=== PATIENT | male | born 1980 | race Caucasian/White ===

== ENCOUNTER 2019-01-11 18:45 | Inpatient (IN) | payer MEDICAID, OTHER ==
[~2019-01-11] VITALS: Ht 188 cm; Wt 82.2 kg
[2019-01-11] MEDS ORDERED: AMIODARONE HCL 150 MG in D5W 5% 100 ML IV ONE (18:50)
[2019-01-11] MEDS ORDERED: METOPROLOL TARTRATE 1MG/1ML-5ML VIAL IV ONE ×2 (18:50→18:53)
[2019-01-11] MEDS ORDERED: AMIODARONE HCL (50 MG/ ML) 3 ML VIAL IV ONE (18:53)
[2019-01-11 19:33] LABS: Hemoglobin 14.2 g/dL (13.5-17.5); Mean Corpuscular Hemoglobin 30.1 pg (28.0-32.0); Mean Corpuscular Hgb Conc. 34.7 g/dL (32.0-36.0); Mean Corpuscular Volume 86.8 fL (80.0-100.0); Platelet Count (auto) 172 10^3/uL (140-450); Red Blood Cells 4.73 10^6/uL (4.5-5.90); Red Cell Distribution Width 12.2 % (11.8-14.3); White Blood Cell 4.8 10^3/uL (4.4-10.8)
[2019-01-11 19:38] LABS: Basophils % (manual) 0 (0.0-2.0); Blast Cells 0; Metamyelocytes % 0; Myelocytes % 0; Promyelocytes % 0; Reactive Lymphocytes 0
[2019-01-11 19:49] LABS: INR 2.36 (0.9-1.15); Partial Thromboplastin Time 37.9 sec (23.64-32.05)
[2019-01-11 19:55] LABS: Albumin 3.3 g/dL (3.4-5.0); Calcium 8.4 mg/dL (8.5-10.1); Potassium 4.2 mmol/L (3.5-5.1)
[2019-01-11 20:00] LABS: BUN/Creatinine Ratio 32.2; Bilirubin, Total 0.7 mg/dL (0.2-1.0); Total Protein 6.7 g/dL (6.4-8.2)
[2019-01-11] MEDS ORDERED: WARF3TAB22 PO (20:26)
[2019-01-11] MEDS ORDERED: FURO40TA4 PO (20:26)
[2019-01-11] MEDS ORDERED: WARF1TAB36 PO (20:26)
[2019-01-11] MEDS ORDERED: LOSA-69 PO (20:26)
[2019-01-11] MEDS ORDERED: METO-169 PO (20:26)
[2019-01-11] MEDS ORDERED: AMIODARONE HCL 900 MG in DEXTROSE 500 ML IV SCH ×2 (21:04→23:19)
[2019-01-11 21:21] LABS: Band Neutrophils % (manual) 4; Eosinophils % (manual) 2 (0-7); Lymphocytes % (manual) 39 (10.0-50.0); Monocytes % (manual) 22 (0-12)
[2019-01-11] MEDS ORDERED: ONDANSETRON HCL 4 MG/2 ML VIAL IV PRN (23:15)
[2019-01-11] MEDS ORDERED: HYDROcodone-ACET 5/325MG TAB PO PRN (23:15)
[2019-01-11] MEDS ORDERED: ACETAMINOPHEN 500 MG TAB PO PRN (23:15)
[2019-01-11] MEDS ORDERED: NITROGLYCERIN 0.4 MG SL TAB SL PRN (23:15)
[2019-01-11] MEDS ORDERED: MORPHINE SULF INJ 2 MG/ML SYRINGE 1ML IV PRN (23:15)
[2019-01-12] MEDS ORDERED: AMIODARONE HCL 900 MG in DEXTROSE 500 ML IV SCH (03:04)
[2019-01-12] MEDS: AMIODARONE HCL 900 MG in DEXTROSE 500 ML IV SCH (05:19)
[2019-01-12 06:26] LABS: BUN/Creatinine Ratio 33.8; Calcium 8.9 mg/dL (8.5-10.1); Potassium 4.1 mmol/L (3.5-5.1)
[2019-01-12 09:14] LABS: Urine Bacteria NONE SEEN /hpf (None Seen); Urine Blood Negative /uL (Negative); Urine Specific Gravity 1.031 (1.001-1.035); Urine WBC <1 /hpf (0 - 3)
[2019-01-12 09:24] LABS: INR 2.14 (0.9-1.15)
[2019-01-12] MEDS ORDERED: METOPROLOL SUCCINATE XL 50 MG TAB PO ONE ×6 (09:30→18:30)
[2019-01-12] MEDS: MAGNESIUM SULFATE 1GM/100ML 100 ML IV SCH ×2 (09:44→10:55)
[2019-01-12] MEDS: LOSARTAN POTASSIUM 50 MG TAB PO SCH (10:00)
[2019-01-12] MEDS ORDERED: METOPROLOL SUCCINATE XL 50 MG TAB PO SCH (10:00)
[2019-01-12] MEDS ORDERED: DIGOXIN (250MCG/ML) 2 ML AMPULE IV ONE ×2 (14:45→15:00)
[2019-01-12 16:37] LABS: Free T4 (Free Thyroxine) 6.98 ng/dL (0.89-1.76)
[2019-01-12 16:38] LABS: Free T3 14.15 pg/mL (2.3-4.2)
[2019-01-12] MEDS ORDERED: WARFARIN SODIUM 1 MG TAB PO ONE (17:00)
[2019-01-12] MEDS: SODIUM CHLORIDE 0.9% 1,000 ML IV SCH (18:01)
[2019-01-12] MEDS: METOPROLOL SUCCINATE XL 50 MG TAB PO SCH (22:00)
[2019-01-13] MEDS: AMIODARONE HCL 900 MG in DEXTROSE 500 ML IV SCH (05:19)
[2019-01-13 07:12] LABS: Basophils # (auto) 0 uL; Basophils % (auto) 0.3 % (0.0-2.0); Eosinophils # (auto) 0 uL; Eosinophils % (auto) 0.5 % (0.0-7.0); Hematocrit 41.1 % (41.0-53.0); Hemoglobin 14.2 g/dL (13.5-17.5); Lymphocytes # (auto) 1.5 uL; Lymphocytes % (auto) 20.3 % (10.0-50.0); Mean Corpuscular Hgb Conc. 34.4 g/dL (32.0-36.0); Mean Corpuscular Volume 87.1 fL (80.0-100.0); Monocytes # (auto) 1.3 uL; Monocytes % (auto) 17.5 % (0.0-12.0); Neutrophils # (auto) 4.6 uL; Neutrophils % (auto) 61.4 % (37.0-80.0); Nucleated Red Blood Cells % 0.1 %; Platelet Count (auto) 154 10^3/uL (140-450); Red Blood Cells 4.72 10^6/uL (4.5-5.90); Red Cell Distribution Width 12.2 % (11.8-14.3); White Blood Cell 7.5 10^3/uL (4.4-10.8)
[2019-01-13 07:24] LABS: INR 3.45 (0.9-1.15)
[2019-01-13 07:35] LABS: BUN/Creatinine Ratio 26.6; Calcium 8.7 mg/dL (8.5-10.1); Potassium 4.4 mmol/L (3.5-5.1)
[2019-01-13] MEDS: LOSARTAN POTASSIUM 50 MG TAB PO SCH (09:45)
[2019-01-13] MEDS: METHIMAZOLE 5 MG TAB PO SCH (09:45)
[2019-01-13] MEDS: METOPROLOL SUCCINATE XL 50 MG TAB PO SCH (09:45)
[2019-01-13] MEDS ORDERED: METOPROLOL SUCCINATE XL 50 MG TAB PO SCH ×2 (10:00→22:00)
[2019-01-13] MEDS: SODIUM CHLORIDE 0.9% 1,000 ML IV SCH (13:47)
[2019-01-13] MEDS ORDERED: DIGOXIN 0.125 MG TAB PO ONE (16:30)
[2019-01-13] MEDS ORDERED: WARF3TAB22 PO (18:49)
[2019-01-13] MEDS ORDERED: WARF4TAB33 PO (18:49)
[2019-01-13] MEDS ORDERED: METOPROLOL SUCCINATE XL 50 MG TAB PO ONE ×2 (20:00→20:11)
[2019-01-13 21:00] VITALS: BP 119/62
[2019-01-14 05:00] VITALS: BP 120/62
[2019-01-14 06:34] LABS: Basophils # (auto) 0 uL; Basophils % (auto) 0.3 % (0.0-2.0); Eosinophils # (auto) 0.1 uL; Eosinophils % (auto) 0.7 % (0.0-7.0); Hematocrit 39.8 % (41.0-53.0); Hemoglobin 14.1 g/dL (13.5-17.5); Lymphocytes # (auto) 1.5 uL; Lymphocytes % (auto) 18.3 % (10.0-50.0); Mean Corpuscular Hemoglobin 30.4 pg (28.0-32.0); Mean Corpuscular Hgb Conc. 35.4 g/dL (32.0-36.0); Mean Corpuscular Volume 85.9 fL (80.0-100.0); Monocytes # (auto) 1.3 uL; Monocytes % (auto) 16.2 % (0.0-12.0); Neutrophils # (auto) 5.3 uL; Neutrophils % (auto) 64.5 % (37.0-80.0); Nucleated Red Blood Cells % 0.1 %; Platelet Count (auto) 164 10^3/uL (140-450); Red Blood Cells 4.64 10^6/uL (4.5-5.90); White Blood Cell 8.2 10^3/uL (4.4-10.8)
[2019-01-14 06:51] LABS: INR 2.33 (0.9-1.15); Partial Thromboplastin Time 37.9 sec (23.64-32.05)
[2019-01-14 07:08] LABS: BUN/Creatinine Ratio 25.4; Calcium 8.6 mg/dL (8.5-10.1); Potassium 4.1 mmol/L (3.5-5.1)
[2019-01-14 07:34] VITALS: BP 131/75
[2019-01-14 09:36] VITALS: BP 131/75
[2019-01-14] MEDS: METOPROLOL SUCCINATE XL 50 MG TAB PO SCH ×2 (10:35→21:14)
[2019-01-14] MEDS: LOSARTAN POTASSIUM 50 MG TAB PO SCH (10:36)
[2019-01-14] MEDS: DIGOXIN 0.125 MG TAB PO SCH (10:36)
[2019-01-14] MEDS: METHIMAZOLE 5 MG TAB PO SCH (10:36)
[2019-01-14 12:23] VITALS: BP 119/64
[2019-01-14 17:00] VITALS: BP 104/73
[2019-01-14] MEDS ORDERED: WARFARIN SODIUM 1 MG TAB PO ONE (17:00)
[2019-01-14 22:00] VITALS: BP 122/75
[2019-01-15 05:00] VITALS: BP 107/59
[2019-01-15 06:39] LABS: Hematocrit 40.6 % (41.0-53.0); Hemoglobin 14.1 g/dL (13.5-17.5); Mean Corpuscular Hemoglobin 29.8 pg (28.0-32.0); Mean Corpuscular Hgb Conc. 34.7 g/dL (32.0-36.0); Platelet Count (auto) 179 10^3/uL (140-450); Red Blood Cells 4.73 10^6/uL (4.5-5.90); Red Cell Distribution Width 12.3 % (11.8-14.3); White Blood Cell 7.5 10^3/uL (4.4-10.8)
[2019-01-15 06:49] LABS: BUN/Creatinine Ratio 27.4; Calcium 8.9 mg/dL (8.5-10.1); Potassium 4.2 mmol/L (3.5-5.1)
[2019-01-15 06:57] LABS: Basophils % (manual) 0 (0.0-2.0); Blast Cells 0; Metamyelocytes % 0; Myelocytes % 0; Promyelocytes % 0; Reactive Lymphocytes 0
[2019-01-15 08:00] VITALS: BP 112/54
[2019-01-15 09:11] LABS: Band Neutrophils % (manual) 3; Lymphocytes % (manual) 20 (10.0-50.0)
[2019-01-15 09:12] LABS: Eosinophils % (manual) 1 (0-7); Monocytes % (manual) 14 (0-12)
[2019-01-15] MEDS: METOPROLOL SUCCINATE XL 50 MG TAB PO SCH ×2 (10:32→21:26)
[2019-01-15] MEDS: LOSARTAN POTASSIUM 50 MG TAB PO SCH (10:33)
[2019-01-15] MEDS: DIGOXIN 0.125 MG TAB PO SCH (10:33)
[2019-01-15] MEDS: METHIMAZOLE 5 MG TAB PO SCH ×2 (10:34→21:26)
[2019-01-15 12:00] VITALS: BP 109/57
[2019-01-15 16:35] VITALS: BP 100/67
[2019-01-15] MEDS ORDERED: WARFARIN SODIUM 1 MG TAB PO ONE (17:00)
[2019-01-15 22:00] VITALS: BP 125/71
[2019-01-16 05:00] VITALS: BP 119/58
[2019-01-16 06:03] LABS: INR 1.85 (0.9-1.15); Partial Thromboplastin Time 33.2 sec (23.64-32.05)
[2019-01-16 08:26] VITALS: BP 113/65
[2019-01-16] MEDS: LOSARTAN POTASSIUM 50 MG TAB PO SCH (09:48)
[2019-01-16] MEDS: DIGOXIN 0.125 MG TAB PO SCH (09:48)
[2019-01-16] MEDS: METHIMAZOLE 5 MG TAB PO SCH (09:48)
[2019-01-16] MEDS: METOPROLOL SUCCINATE XL 50 MG TAB PO SCH (09:49)
[2019-01-16] MEDS ORDERED: VERAPAMIL HCL 120 mg ER tab PO SCH (10:00)
[2019-01-16 13:00] VITALS: BP 112/65
[2019-01-16 14:21] VITALS: BP 119/76
[2019-01-16] MEDS ORDERED: WARFARIN SODIUM 1 MG TAB PO ONE (17:00)
[2019-01-17 10:48] LABS: Free T4 (Free Thyroxine) 6.82 ng/dL (0.89-1.76)
[2019-01-17 10:49] LABS: Free T3 9.2 pg/mL (2.3-4.2)
== END 2019-01-16 15:35 | disposition home or self-care (01) | DRG 194 ==
LOC: EDBD 18:45 → ER 18:45 → TELE 18:46 → TELE-CENTR 01-13 18:26
PROVIDERS: ADMIT Internal Medicine; ATTEND Internal Medicine
PROC: 4B02XTZ Measurement of Cardiac Defibrillator, External Approach (ICD-10-PCS; principal; 2019-01-12)
DX: I50.23 Acute on chronic systolic (congestive) heart failure (principal); I47.2 Ventricular tachycardia; Q20.3 Discordant ventriculoarterial connection; D68.9 Coagulation defect, unspecified; I42.0 Dilated cardiomyopathy; I48.91 Unspecified atrial fibrillation; E03.9 Hypothyroidism, unspecified; E05.90 Thyrotoxicosis, unspecified without thyrotoxic crisis or storm; Z79.899 Other long term (current) drug therapy; Z95.810 Presence of automatic (implantable) cardiac defibrillator; Z79.01 Long term (current) use of anticoagulants; Q24.9 Congenital malformation of heart, unspecified
CPT/HCPCS: 36415; 71045; 80048; 80053; 81001; 83735; 83880; 84439; 84443; 84481; 84484; 85007; 85025; 85027; 85610; 85730; 93005; 93306; 93971; 96365; 96366; 96375; G0378; J7060